=== PATIENT | male | born 1985 | race Two or more races ===

== ENCOUNTER 2021-05-24 04:48 | Emergency (ER) | payer MEDICAID ==
[~2021-05-24] VITALS: Ht 170.2 cm; Wt 102.9 kg
[2021-05-24 07:22] VITALS: BP 146/88
[2021-05-24] MEDS ORDERED: DICL50TA9 MT (07:25)
[2021-05-24] MEDS ORDERED: CYCL10TA7 MT (07:27)
== END 2021-05-24 07:50 | disposition home or self-care (01) ==
LOC: ER 04:48
DX: M54.50 Low back pain, unspecified (principal); G89.29 Other chronic pain
CPT/HCPCS: 99283